=== PATIENT | female | born 1970 | race Caucasian/White ===

== ENCOUNTER 2022-04-20 04:23 | Day surgery (SDC) | payer OTHER ==
[2022-04-17 10:54] VITALS: BMI 39.4
[2022-04-20 10:27] VITALS: TEMP 99
[2022-04-20 11:25] VITALS: BP 119/71; PULSE 58
== END 2022-04-20 11:20 | disposition home or self-care (01) ==
LOC: JASU-ENDO 04:23
PROVIDERS: ATTEND Internal Medicine Gastroenterology
PROC: 0DB98ZX Excision of Duodenum, Via Natural or Artificial Opening Endoscopic, Diagnostic (ICD-10-PCS; 2022-04-20)
PROC: 0DB68ZX Excision of Stomach, Via Natural or Artificial Opening Endoscopic, Diagnostic (ICD-10-PCS; 2022-04-20)
PROC: 0DBE8ZX Excision of Large Intestine, Via Natural or Artificial Opening Endoscopic, Diagnostic (ICD-10-PCS; principal; 2022-04-20 10:00)
DX: Z12.11 Encounter for screening for malignant neoplasm of colon (principal); K64.8 Other hemorrhoids; K29.50 Unspecified chronic gastritis without bleeding; K44.9 Diaphragmatic hernia without obstruction or gangrene; K21.9 Gastro-esophageal reflux disease without esophagitis
CPT/HCPCS: 81025; 88305-TC